=== PATIENT | male | born 1980 | race Caucasian/White ===

== ENCOUNTER 2017-05-27 21:33 | Emergency (ER) | payer SELFPAY ==
[~2017-05-27] VITALS: Ht 180.3 cm; Wt 63.5 kg
[~2017-05-27 21:33] MED LIST: AUGMENTIN 875 M1 TAB PO; CIPROFLOXACIN500 MG PO; KEFLEX500 MG PO; MOTRIN800 MG PO; PEN-VK500 MG PO; SINEMET 25-1001 TA1 PO; TRAMADOL HCL50 MG PO; TRIMOX500 MG PO; VICODIN 500 MG-1 TAB PO; VICODIN ES 7501 TAB PO; VISTARIL50 MG PO; Zofran4 MG PO
[2017-05-27 21:53] VITALS: BP 124/96
[2017-05-27] MEDS ORDERED: CEPHALEXIN500 M1 PO (23:11)
== END 2017-05-27 23:16 | disposition home or self-care (01) ==
LOC: ED 21:33
DX: S51.012A Laceration without foreign body of left elbow, initial encounter (principal); F17.200 Nicotine dependence, unspecified, uncomplicated; W10.8XXA Fall (on) (from) other stairs and steps, initial encounter; Y93.89 Activity, other specified; Y92.89 Other specified places as the place of occurrence of the external cause; Y99.9 Unspecified external cause status

== ENCOUNTER 2019-07-03 14:32 | Inpatient (IN) | payer BC ==
[~2019-07-03] VITALS: Ht 180.3 cm; Wt 60.1 kg
--- NOTE | ~2019-07-03 | EKG ---
[place], [place] ELECTROCARDIOGRAM REPORT NAME: THUY HARDIN UNIT #: [id number] ROOM: 516 DOCTOR: JESSICA DRAFT REPORT BIRTHDATE: [birth year] [facility] Test Date: 2019-07-03 Test Time: 16:43:51 Pat Name: THUY HARDIN Department: Room: 516 1 Gender: M Operations And Maintenance Manager: : 1980 Requested By: MELODY GARCIA Order Number: [id number] Reading MD: Soni Bourne Measurements Intervals [place] Rate: 63 P: 42 VA: 134 QRS: 12 QRSD: 95 T: 39 QT: 412 QTc: 422 Interpretive Statements Sinus rhythm ST elev, probable normal early repol pattern Electronically Signed On 07-05-2019 4:15:12 PDT by Soni Bourne CM:EKGRPT:ELECTROCARDIOGRAM REPORT [id number] MELODY LOPEZ DRAFT REPORT MELODY GARCIA
[~2019-07-03 14:32] MED LIST changes: +CEPHALEXIN500 M1 PO
[2019-07-03 16:00] VITALS: BP 113/77
--- NOTE | 2019-07-03 16:16 | NUR ---
PATIENT MEETS [facility]. CINA=19,CIWA=25. PATIENT IS WANTING INPATIENT TREATMENT FOR HIS AFTERCARE PLAN. NE STAFF WILL PROVIDE PATIENT REFERRAL OPTIONS AND WILL FOLLOW UP WITH PATIENT. VIDHYA GARAY B.A. INTAKE COORDIANTOR
[2019-07-03 16:30] VITALS: BP 113/77
--- NOTE | 2019-07-03 16:30 | NUR ---
LATE ENTRY ADMISSION NOTE 39 year old MALE admitted to room # 516 for stabilization. 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 Compliant with admission procedure. Patient denies any anxiety, but is unable to sit still, taps toes to floor continuously, looks about room, unable to focus eyes on nurse during interview. See assessment forms for additional information about patient status. NO OPEN WOUNDS, PT REFUSING PADDED RAILINGS FOR SEIZURE PRECAUTIONS, TEDS, AND BED ALARM. INITIAL ASSESSMENT COMPLETED. PT CAME TO FLOOR WITH TREMORS, RESTLESSNESS, AND WANTING TO JUST SLEEP. WILL CONTINUE TO MONITOR PATIENT.
[2019-07-03 16:47] LABS: BASO # 0.1 10*3/uL (0.0-0.1); BASO % 0.8 % (0.0-1.0); EOS # 0.1 10*3/uL (0.0-0.4); EOS % 0.6 % (1.0-4.0); HEMATOCRIT 46.8 % (42.0-52.0); HEMOGLOBIN 15.2 g/dl (14.0-18.0); LYMPH # 2.8 10*3/uL (1.3-4.4); LYMPH % 27.9 % (27.0-41.0); MEAN CELL VOLUME 99.8 fl (80.0-94.0); MEAN CORPUSCULAR HGB 32.4 pg (27.0-31.0); MEAN CORPUSCULAR HGB CONC 32.5 g/dl (33.0-37.0); MEAN PLATELET VOLUME 8.8 fl (9.6-12.3); MONO # 0.5 10*3/uL (0.1-1.0); MONO % 4.5 % (3.0-9.0); NEUT # 6.5 10*3/uL (2.3-7.9); NEUT % 65.2 % (47.0-73.0); PLATELET COUNT AUTOMATED 484 10*3/uL (130-400); RED BLOOD COUNT 4.69 10*6/uL (4.50-5.90); RED CELL DISTRI WIDTH 13.3 % (0-14.5)
--- NOTE | 2019-07-03 16:55 | NUR ---
CALLED AND NOTIFIED DR. HARRIS OF PT'S WISHES TO BE A DNR-CC.
[2019-07-03 16:58] LABS: INTERNATIONAL NORM RATIO 0.9 (2.0-3.5)
--- NOTE | 2019-07-03 16:58 | NUR ---
PT STATED HE TENDS TO BLACKOUT AND FALL FREQUENTLY. INFORMED PT THAT A BED ALARM WILL BE NEEDED TO BE APPLIED. PT STATED THAT HE DOES NOT WANT A BED ALARM ON HIS BED. I INFORMED HIM THAT IT WAS FOR SAFETY PRECAUTIONS AND SO THAT HE DOES NOT GET HURT. HE STATED THAT HE STILL DID NOT WANT THE BED ALARM ON. NON-SLIP SOCKS WERE PLACED ON PT'S FEET.
[2019-07-03 17:02] LABS: ALBUMIN 3.8 gm/dl (3.1-4.5); ALKALINE PHOSPHATASE 102 U/L (45-117); BUN 4 mg/dl (7-24); CHLORIDE 104 mmol/L (98-107); CREATININE 0.93 mg/dL (0.70-1.30); SGOT/AST 27 IU/L (3-35); SGPT/ALT 28 U/L (12-78); SODIUM 137 mmol/L (136-145)
--- NOTE | 2019-07-03 18:44 | NUR ---
PT IS CURRENTLY REFUSING SEIZURE PRECAUTIONS AND LAUREN CANTU. STATED HE JUST WANTS TO BE LEFT ALONE FOR A LITTLE BIT. EDUCATION WAS PROVIDED.
[2019-07-03 20:00] VITALS: BP 119/76
--- NOTE | 2019-07-03 20:02 | NUR ---
C/O RESTLESSNESS OF HIS LEGS AND VISIBLY PATIENT CAN NOT KEEP STILL. ANXIETY, C/O SKIN CRAWLING. PAIN FROM TOOTHACHE. REQUIP GIVEN FOR RESTLESSNESS, ROBAXIN AND MOTRIN GIVEN FOR PAIN OF TEETH AND LEGS CRAMPS. VISTARIL GIVEN FOR ANXIETY, NICOTINE PATCH APPLIED PER ORDER FOR CIGARETTE CRAVING.
--- NOTE | 2019-07-03 20:11 | NUR ---
24 HR chart check completed.
--- NOTE | 2019-07-03 20:24 | NUR ---
URINE DRUG SCREEN SENT FROM URINE COLLECTED PRIOR TO SHIFT AND SENT TO LAB.
[2019-07-03 20:37] LABS: URINE AMPHETAMINES < 1000 (1000ng/ml); URINE BARBITURATES < 200 (200ng/ml); URINE BENZODIAZEPINES < 200 (200ng/ml); URINE CANNABINOIDS (THC) < 50 (50ng/ml); URINE COCAINE > 300 (300ng/ml); URINE METHADONE < 300 (300ng/ml); URINE OPIATES < 300 (300ng/ml)
[2019-07-03 20:38] LABS: URINE PHENCYCLIDINE < 25 (25ng/ml)
--- NOTE | 2019-07-03 21:00 | NUR ---
WITHDRAWAL SYMPTOMS LESSENING PER PT. URINE DRUG SCREEN TESTED POSITIVE FOR COCAINE.
--- NOTE | 2019-07-03 23:36 | NUR ---
TRAZADONE GIVEN PER ORDER FOR INSOMNIA. SEE MAR.
[2019-07-04] VITALS: BP 110/60
--- NOTE | 2019-07-04 00:30 | NUR ---
SLEEPING TRAZADONE EFFECTIVE.
[2019-07-04 05:00] VITALS: BP 104/65
--- NOTE | 2019-07-04 05:25 | NUR ---
C/O LEG MUSCLES ACHING AND STOMACHE UPSET. ROBAXIN AND ZOFRAN GIVEN PER ORDER FOR WITHDRAWAL SYMPTOMS.
--- NOTE | 2019-07-04 06:58 | NUR ---
24 HR chart check completed.
--- NOTE | 2019-07-04 11:49 | NUR ---
PRN MOTRIN WAS GIVEN FOR A HEADACHE AND A TOOTH ACHE. WILL REASSESS EFFECTIVENESS.
[2019-07-04 12:00] VITALS: BP 122/68
--- NOTE | 2019-07-04 13:35 | NUR ---
PT STATED THAT HE WAS GOING TO WALK THE HALLS AND WAIT FOR HIS MOTHER TO COME UP. RN INSTRUCTED HIM THAT HE COULD NOT LEAVE THE FLOOR BUT COULD WALK THE HALLS. DATA ANALYTICS CHIEF SCIENTIST THEN CALLED AND ASKED IF PT WAS OFF THE UNIT. I SEARCHED THE HALLS AND DID NOT FIND THE PT. SECURITY WAS CALLED AND NOTIFIED, INVENTORY ANALYST WAS CALLED AND NOTIFIED, AND SECURITY HAD CALLED UP STATED THEY FOUND HIM SMOKING OUTSIDE. DR. HARRIS WAS NOTIFIED AND AMA ORDER WILL BE PLACED. [facility] IS AWARE.
--- NOTE | 2019-07-04 13:53 | NUR ---
PT LEFT THE UNIT AND WAS FOUND OUTSIDE TRYING TO SMOKE PER SECURITY. PT WAS DISCHARGED AMA PER POLICY. MONITOR WAS REMOVED AND PT REFUSED TO SIGN AMA PAPERWORK.
== END 2019-07-04 13:53 | disposition left against medical advice (07) | DRG 894 ==
LOC: 5E 14:32
PROVIDERS: Student in an Organized Health Care Education/Training Program; ADMIT Internal Medicine
DX: F11.23 Opioid dependence with withdrawal (principal); F41.9 Anxiety disorder, unspecified; F32.9 Major depressive disorder, single episode, unspecified; K21.9 Gastro-esophageal reflux disease without esophagitis; F17.210 Nicotine dependence, cigarettes, uncomplicated; F14.10 Cocaine abuse, uncomplicated; F10.230 Alcohol dependence with withdrawal, uncomplicated; R45.1 Restlessness and agitation; Z53.21 Procedure and treatment not carried out due to patient leaving prior to being seen by health care provider; Z83.79 Family history of other diseases of the digestive system

== ENCOUNTER 2019-07-09 10:03 | Emergency (ER) | payer BC ==
[~2019-07-09] VITALS: Ht 180.3 cm; Wt 63.5 kg
--- NOTE | ~2019-07-09 | EKG ---
[place], [place] ELECTROCARDIOGRAM REPORT NAME: THUY HARDIN UNIT #: [id number] ROOM: DOCTOR: JESSICA DRAFT REPORT BIRTHDATE: [birth year] [facility] Test Date: 2019-07-09 Test Time: 10:27:44 Pat Name: THUY HARDIN Department: Room: Gender: Corrosion Technician: ELVIA : 1980 Requested By: RODOLFO ROSAS Order Number: [id number] Reading MD: Milton Bernabe MD Measurements Intervals [place] Rate: 108 P: 67 NM: 142 QRS: 11 QRSD: 96 T: 48 QT: 339 QTc: 455 Interpretive Statements Sinus tachycardia Electronically Signed On 07-10-2019 4:39:48 PDT by Milton Bernabe MD CM:EKGRPT:ELECTROCARDIOGRAM REPORT [id number] RODOLFO SWEENEY DRAFT REPORT RODOLFO ROSAS DO
[2019-07-09 10:30] LABS: BASO # 0.1 10*3/uL (0.0-0.1); BASO % 0.8 % (0.0-1.0); EOS % 0.3 % (1.0-4.0); HEMATOCRIT 47.5 % (42.0-52.0); HEMOGLOBIN 15.4 g/dl (14.0-18.0); LYMPH # 2.3 10*3/uL (1.3-4.4); LYMPH % 22.4 % (27.0-41.0); MEAN CELL VOLUME 101.3 fl (80.0-94.0); MEAN CORPUSCULAR HGB 32.8 pg (27.0-31.0); MEAN CORPUSCULAR HGB CONC 32.4 g/dl (33.0-37.0); MEAN PLATELET VOLUME 8.7 fl (9.6-12.3); MONO # 0.5 10*3/uL (0.1-1.0); MONO % 4.5 % (3.0-9.0); NEUT # 7.2 10*3/uL (2.3-7.9); NEUT % 71.4 % (47.0-73.0); PLATELET COUNT AUTOMATED 533 10*3/uL (130-400); RED BLOOD COUNT 4.69 10*6/uL (4.50-5.90); RED CELL DISTRI WIDTH 13.6 % (0-14.5); WHITE BLOOD COUNT 10.1 10*3/uL (4.8-10.8)
[2019-07-09 10:45] LABS: ACT PARTIAL THROMBO TIME 30.2 SECONDS (20.0-32.1); INTERNATIONAL NORM RATIO 0.9 (2.0-3.5)
[2019-07-09 10:56] LABS: ALBUMIN 3.6 gm/dl (3.1-4.5); BUN 4 mg/dl (7-24); CHLORIDE 104 mmol/L (98-107); CREATININE 1.02 mg/dL (0.70-1.30); LIPASE 93 U/L (73-393); POTASSIUM 3.7 mmol/L (3.5-5.1); SGOT/AST 86 IU/L (3-35); SGPT/ALT 102 U/L (12-78); SODIUM 135 mmol/L (136-145); TOTAL PROTEIN 7.6 gm/dL (6.4-8.2)
[2019-07-09 10:58] LABS: ALKALINE PHOSPHATASE 118 U/L (45-117)
[2019-07-09 11:00] LABS: TROPONIN I < 0.015 ng/ml (<0.045)
[2019-07-09 12:22] LABS: BILIRUBIN NEGATIVE (NEGATIVE); BLOOD TRACE-LYSED (NEGATIVE); CLARITY CLOUDY (CLEAR); COLOR YELLOW (YELLOW); GLUCOSE NEGATIVE (NEGATIVE); KETONE NEGATIVE (NEGATIVE); LEUKO ESTERASE NEGATIVE (NEGATIVE); NITRITE NEGATIVE (NEGATIVE); SPECIFIC GRAVITY <= 1.005 (1.005-1.030); UROBILINOGEN 0.2 E.U./dl (0.2-1.0)
[2019-07-09 12:39] LABS: URINE AMPHETAMINES < 1000 (1000ng/ml); URINE BARBITURATES < 200 (200ng/ml); URINE BENZODIAZEPINES > 200 (200ng/ml); URINE CANNABINOIDS (THC) < 50 (50ng/ml); URINE COCAINE > 300 (300ng/ml); URINE METHADONE < 300 (300ng/ml); URINE OPIATES < 300 (300ng/ml)
[2019-07-09 12:40] LABS: URINE PHENCYCLIDINE < 25 (25ng/ml)
[2019-07-09 13:06] LABS: BACTERIA 1+; EPITHELIAL CELLS TNTC
[2019-07-09 13:55] LABS: ACETAMINOPHEN (TYLENOL) < 5.0 ug/ml (10-30)
[2019-07-09] MEDS ORDERED: AMOXICILLIN875 MG PO (16:43)
[2019-07-09 17:00] VITALS: BP 118/68
== END 2019-07-09 17:20 | disposition home or self-care (01) ==
LOC: ED 10:03
PROVIDERS: Emergency Medicine
DX: T40.1X1A Poisoning by heroin, accidental (unintentional), initial encounter (principal); K04.7 Periapical abscess without sinus; R40.20 Unspecified coma; K21.9 Gastro-esophageal reflux disease without esophagitis; F32.9 Major depressive disorder, single episode, unspecified; F14.10 Cocaine abuse, uncomplicated; F11.10 Opioid abuse, uncomplicated; F17.210 Nicotine dependence, cigarettes, uncomplicated; Y92.89 Other specified places as the place of occurrence of the external cause

== ENCOUNTER 2019-08-17 17:35 | Emergency (ER) | payer BC ==
[~2019-08-17] VITALS: Ht 180.3 cm; Wt 63.5 kg
[~2019-08-17 17:35] MED LIST changes: +AMOXICILLIN875 MG PO
[2019-08-17 17:36] VITALS: BP 117/82
[2019-08-17] MEDS ORDERED: CEPHALEXIN500 M1 PO (18:34)
== END 2019-08-17 18:47 | disposition home or self-care (01) ==
LOC: ED 17:35
DX: S61.211A Laceration without foreign body of left index finger without damage to nail, initial encounter (principal); F17.210 Nicotine dependence, cigarettes, uncomplicated; W26.0XXA Contact with knife, initial encounter; Y93.89 Activity, other specified; Y92.89 Other specified places as the place of occurrence of the external cause; Y99.8 Other external cause status

== ENCOUNTER 2020-01-17 15:42 | Emergency (ER) | payer SELFPAY ==
[~2020-01-17] VITALS: Ht 180.3 cm; Wt 63.5 kg
[2020-01-17 15:50] VITALS: BP 128/68
[2020-01-17] MEDS ORDERED: OFLOXACIN OTIC5 ML OPH (16:58)
[2020-01-17] MEDS ORDERED: FLONASE ALLERG9.9 ML NAS (16:58)
[2020-01-17] MEDS ORDERED: CLARITIN10 MG PO (16:58)
[2020-01-17] MEDS ORDERED: DOXYCYCLINE100 M3 PO (16:58)
== END 2020-01-17 17:02 | disposition home or self-care (01) ==
LOC: ED 15:42
DX: H60.91 Unspecified otitis externa, right ear (principal); H69.81 Other specified disorders of Eustachian tube, right ear; H66.41 Suppurative otitis media, unspecified, right ear; F17.210 Nicotine dependence, cigarettes, uncomplicated; Z86.14 Personal history of Methicillin resistant Staphylococcus aureus infection

== ENCOUNTER 2021-04-26 23:43 | Emergency (ER) | payer OTHER ==
[~2021-04-26] VITALS: Ht 180.3 cm; Wt 61.7 kg
[~2021-04-26 23:43] MED LIST changes: +CLARITIN10 MG PO; +DOXYCYCLINE100 M3 PO; +FLONASE ALLERG9.9 ML NAS; +OFLOXACIN OTIC5 ML OPH
[2021-04-27 00:28] LABS: HEMATOCRIT 37.2 % (42.0-52.0); MEAN CELL VOLUME 95.1 fl (80.0-94.0); MEAN CORPUSCULAR HGB 30.7 pg (27.0-31.0); MEAN CORPUSCULAR HGB CONC 32.3 g/dl (33.0-37.0); MEAN PLATELET VOLUME 8.6 fl (9.6-12.3); PLATELET COUNT AUTOMATED 417 10*3/uL (130-400); RED BLOOD COUNT 3.91 10*6/uL (4.50-5.90); RED CELL DISTRI WIDTH 13.8 % (0-14.5); WHITE BLOOD COUNT 7.4 10*3/uL (4.8-10.8)
[2021-04-27 00:30] LABS: ALBUMIN 3.4 gm/dl (3.1-4.5); ALKALINE PHOSPHATASE 145 U/L (45-117); BUN 16 mg/dl (7-24); CHLORIDE 102 mmol/L (98-107); CREATININE 1.04 mg/dL (0.70-1.30); POTASSIUM 3.8 mmol/L (3.5-5.1); SGOT/AST 11 IU/L (3-35); SGPT/ALT 11 U/L (12-78); SODIUM 134 mmol/L (136-145); TOTAL PROTEIN 7.7 gm/dL (6.4-8.2)
[2021-04-27 00:31] LABS: TROPONIN I < 0.015 ng/ml (<0.045)
[2021-04-27 00:57] LABS: BILIRUBIN Negative (Negative); BLOOD Negative (Negative); CLARITY Clear (Clear); COLOR Yellow (Yellow); GLUCOSE Negative (Negative); KETONE Negative (Negative); LEUKO ESTERASE Negative (Negative); NITRITE Negative (Negative)
[2021-04-27 01:02] LABS: PLATELET SUFFICIENCY NORMAL (NORMAL); TOTAL CELLS COUNTED 100 #CELLS
[2021-04-27 01:17] VITALS: BP 141/78
[2021-04-27 01:20] LABS: RBC 0-2 rbc/hpf (0-2); WBC 0-2 wbc/hpf (0-5)
[2021-04-28 05:06] LABS: HEP B CORE AB, IGM Negative (Negative); HEPATITIS B SURFACE AG Negative (Negative)
[2021-04-28 14:39] LABS: HEPATITIS C VIRUS ANTIBODY >11.0 s/co (0.0-0.9)
== END 2021-04-27 03:46 | disposition home or self-care (01) ==
LOC: ED 23:43
PROVIDERS: Internal Medicine
DX: B34.9 Viral infection, unspecified (principal); Z20.822 Contact with and (suspected) exposure to COVID-19; E87.2 Acidosis; D53.9 Nutritional anemia, unspecified; R07.89 Other chest pain; Z79.899 Other long term (current) drug therapy